=== PATIENT | male | born 1995 | race Asian ===

== ENCOUNTER 2019-01-19 10:17 | Day surgery (SDC) | payer OTHER ==
[2019-01-16 18:42] VITALS: BMI 25.8
[~2019-01-19 10:17] MED LIST: BUPIVACAINE HCL/PF 0.5% (5MG/ML) 10 ML VIAL IJ ONE
[2019-01-19] MEDS ORDERED: MIDAZOLAM HCL 2 MG/2 ML SINGLE DOSE VIAL ONE ×2 (12:39)
[2019-01-19] MEDS ORDERED: PROPOFOL 20 ML ONE (12:43)
[2019-01-19] MEDS ORDERED: ceFAZolin SODIUM 1 GM VIAL IVPB ONE (12:54)
[2019-01-19] MEDS ORDERED: SUCCINYLCHOLINE CHLORIDE 200 MG/10 ML VIAL ONE (13:03)
[2019-01-19] MEDS ORDERED: oxyCODONE HCL 5 MG TABLET PO PRN (13:26)
[2019-01-19] MEDS ORDERED: ONDANSETRON 4 MG/2 ML VIAL IVPUSH PRN (13:26)
[2019-01-19] MEDS ORDERED: LACTATED RINGERS SOLUTION 1,000 ML IV SCH (13:30)
[2019-01-19] MEDS ORDERED: BACITRACIN 15 GM TUBE TOPICAL OINTMENT TP ONE (13:58)
[2019-01-19] MEDS ORDERED: BUPIVACAINE HCL/PF 0.5% (5MG/ML) 10 ML VIAL IJ ONE (13:58)
--- NOTE | 2019-01-19 14:46 | OP ---
Operative Note - Note: Operative Date: 01/19/19 Pre-Operative Diagnosis: penile deformity and phimosis Operation: circumcision and penoplasty Findings: severe phimosis with penile curvature secondary to frenular scarring Post-Operative Diagnosis: Same as Pre-op Surgeon: Gregory Del Rio Anesthesia: General
[2019-01-19 17:04] VITALS: BP 121/65; PULSE 65
[2019-01-19 22:43] VITALS: TEMP 98
--- NOTE | 2019-01-19 23:14 | OP ---
DATE OF OPERATION: 01/19/2019 PREOPERATIVE DIAGNOSIS: Penile deformity and phimosis. POSTOPERATIVE DIAGNOSIS: Penile deformity and phimosis. PROCEDURE: Circumcision and penoplasty. The patient presents with a history of a tight phimosis with inability to retract the foreskin. In addition, the patient has had numerous injuries to the frenulum with scarring of the frenulum. The patient and his family have been given all the risks and benefits of the procedure. They agreed to the procedure in order to minimize further injury to the penis. The patient was brought in the operating room, placed in supine position on the operating room table. Antibiotics were given preoperatively for surgical prophylaxis. The patient's status as to allergies to medication is noted. At this point, the patient was prepped and draped in the usual sterile manner. The distal preputial skin is excised utilizing the guillotine technique. At this point, the proximal penile skin below the glans is cut to allow a 1.5 cm fringe below the glans. The frenulum and scarred aspects of the glans are excised and sent for specimen. At this point, hemostasis is obtained utilizing electrocauterization circumferentially. A stay stitch is placed in the glans at the level of the frenular insertion. With traction, the glans is then reapproximated with interrupted chromic stitches. A 2-layer closure is utilized for the glans. At this point, the subcutaneous tissue is reapproximated circumferentially. With this accomplished, interrupted chromic stitches are placed circumferentially to reapproximate the penile skin. Excellent hemostasis was obtained, no complications were noted. A dressing is placed at the end of the procedure. The stay suture is removed. Marcaine was injected preoperatively and postoperatively in order to minimize anesthesia. MARGARITA WOODARD M.D. [id number]
--- NOTE | 2019-01-21 16:56 | PATH ---
Surgical Pathology Report Patient Name: NATHEN BARROW Med. Rec. #: [id number] /Age/Gender: 1995 (Age: 23) / M Account: [id number] Location: [facility] SURGICAL Taken: 01/19/2019 Received: 01/20/2019 Reported: 01/21/2019 Physicians: Gregory Del Rio Specimen(s) Received A: FORESKIN B: GLANS PENIS Clinical History Phimosis Final Diagnosis A. FORESKIN, EXCISION: SEGMENT OF FORESKIN WITH MILD CHRONIC INFLAMMATION. B. GLANS PENIS, BIOPSY: SEGMENT OF SKIN WITH NO SIGNIFICANT PATHOLOGIC CHANGE. Electronically Signed Satish Holman M.D. Gross Description A. Received in formalin labeled "foreskin," is a 2.5 x 1.5 x 1.4 cm brown portion of wrinkled skin, consistent with foreskin. No discrete epidermal lesion is identified. Journalism Teacher sections are submitted in one cassette. B. Received in formalin labeled "glans penis," is a 0.4 cm in greatest dimension mooney skin fragment. The specimen is submitted in toto in one cassette. /01/20/2019 saudi01/20/2019
== END 2019-01-19 17:10 | disposition home or self-care (01) ==
LOC: JASU-SURG 10:17
PROVIDERS: ATTEND Urology
PROC: 0VNS0ZZ Release Penis, Open Approach (ICD-10-PCS; 2019-01-19)
PROC: 0VTTXZZ Resection of Prepuce, External Approach (ICD-10-PCS; principal; 2019-01-19 11:50)
DX: N47.1 Phimosis (principal); N48.89 Other specified disorders of penis
CPT/HCPCS: 88304-TC; 94760